=== PATIENT | male | born 1980 ===

== ENCOUNTER 2017-01-13 01:07 | Emergency (ER) | payer MEDICAID ==
[2017-01-13 01:16] VITALS: BP 147/89; PULSE 90; RESP 18; TEMP 98.3; O2SAT 98
--- NOTE | 2017-01-13 02:08 | ED PDOC ---
HPI: Trauma/Fall - HPI Time Seen by Provider: 01/13/17 01:11 Chief Complaint (Nursing): Medical Clearance Chief Complaint (Provider): body pain History Per: Patient History/Exam Limitations: no limitations Injury Occurred (Timing): Just Before Arrival Additional History Per: Patient Additional Complaint(s): 36 y/o male brought in by EMS, in police custody for eval of body pain and possible substance abuse. Patient states he was "jumped by the police". He is complaining of pain to head, face, chest/ribs, and left upper leg. Patient does not know if he lost consciousness. Denies headache, dizziness, nausea/ vomiting, vision changes, shortness of breath, palpitations, abdominal pain, back pain, numbness/weakness upper or lower extremities, bowel/bladder incontinence. He denies suicidal/homicidal ideations, drug or alcohol use. Past Medical History Reviewed: Historical Data, Nursing Documentation, Vital Signs Vital Signs: Last Vital Signs Temp 98.3 F 01/13/17 01:13 Pulse 90 01/13/17 01:13 Resp 18 01/13/17 01:13 BP 147/89 01/13/17 01:13 Pulse Ox 98 01/13/17 01:13 - Medical History PMH: Anxiety, Bipolar Disorder, Depression, Post Traumatic Stress Disorder - Family History Family History: States: Unknown Family Hx - Immunization History Hx Tetanus Toxoid Vaccination: No Hx Influenza Vaccination: No Hx Pneumococcal Vaccination: No - Home Medications Home Medications: Ambulatory Orders Medication Instructions Recorded Naproxen [Naprosyn] 1 tab PO BID PRN #25 tab 06/25/14 oxyCODONE/Acetaminophen [Percocet 1 tab PO QID PRN #20 tab 06/25/14 5/325 mg Tab] Mirtazapine [Remeron] 1 tab PO DAILY 07/28/16 Prednisone [Deltasone] 60 mg PO DAILY #15 tablet 07/28/16 traMADol [Ultram] 50 mg PO Q6H PRN #15 tab 07/28/16 Naproxen [Naprosyn] 500 mg PO Q12 PRN #20 tablet 01/13/17 - Allergies Allergies/Adverse Reactions: Allergies Allergy/AdvReac Type Severity Reaction Status Date / Time No Known Allergies Allergy Verified 06/25/14 12:15 Review of Systems ROS Statement: Except As Marked, All Systems Reviewed And Found Negative Musculoskeletal: Positive for: Leg Pain (left), Other (chest/rib pain) Neurological: Positive for: Headache Physical Exam - Reviewed Nursing Documentation Reviewed: Yes Vital Signs Reviewed: Yes - Physical Exam Appears: Positive for: Well, Non-toxic, No Acute Distress Head Exam: Negative for: ATRAUMATIC (multiple frontal contusions) Skin: Positive for: Normal Color Eye Exam: Positive for: EOMI, PERRL, Periorbital tenderness (right infraorbital ; no crepitus, bony deformity noted) ENT: Positive for: Normal ENT Inspection, Other (no septal hematoma b/l) Cardiovascular/Chest: Positive for: Regular Rate, Rhythm. Negative for: Chest Non Tender (tender to palpation left anterior chest wall, b/l lateral ribs. No crepitus, ecchymosis, swelling or flail chest noted) Respiratory: Positive for: Normal Breath Sounds Pulses-Dorsalis Pedis (L): 2+ Pulses-Dorsalis Pedis (R): 2+ Gastrointestinal/Abdominal: Positive for: Normal Exam Back: Positive for: Normal Inspection Extremity: Positive for: Tenderness (posterior left leg, left lateral leg; FROM but posterior pain with flexion at knee; no ecchymosis, swelling, deformity noted. Distal NV, motor intact), Other (abrasion left anterior lower cespedes) Neurologic/Psych: Positive for: Alert, Oriented. Negative for: Motor/Sensory Deficits - ECG O2 Sat by Pulse Oximetry: 98 - Progress ED Course And Treament: Ct head, CT facial, ribs/chest xray, left femur xray, tylenol PO Left lower leg abrasion cleaned with NS, steristrips applied Patient evaluated by acid conditioning worker and cleared for d/c as per Dr. Guerra. Patient educated on findings, discharged with rx Naproxen. Advised follow up PMD/ENT Return to ED for worsening/concerning symptoms. Disposition - Clinical Impression Clinical Impression: Nasal bone fracture, Forehead contusion, Leg pain, left, Leg abrasion, Chest wall pain, Polysubstance abuse - Patient ED Disposition Is Patient to be Admitted: No Counseled Patient/Family Regarding: Studies Performed, Diagnosis, Need For Followup, Rx Given - Disposition Referrals: [facility] [Outside] Merrill Duvall MD [Staff Provider] - Disposition: Discharged/Transfer to Law Enforcement Disposition Time: 04:33 Condition: STABLE Additional Instructions: Patient medically and psychiatrically cleared for incarceration Ice affected areas. Take medication as directed, as needed for pain. Follow up with primary doctor/ENT Return to ED for worsening/concerning symptoms. Prescriptions: Naproxen [Naprosyn] 500 mg PO Q12 PRN #20 tablet PRN Reason: Pain, Moderate (4-7) Instructions: Nasal Fracture (ED), Abrasion (ED), Polysubstance Abuse (ED), Leg Pain (ED), Facial Contusion (ED), Chest Wall Pain (ED)
--- NOTE | 2017-01-13 03:39 | CT ---
EXAM: CT Head Without Intravenous Contrast. CLINICAL HISTORY: 36 years old, male; Injury or trauma; Injury Under police custody; Initial encounter; Blunt trauma (contusions or hematomas); Additional info: Head trauma TECHNIQUE: Axial computed tomography images of the head/brain without intravenous contrast. This CT exam was performed using one or more of the following dose reduction techniques: automated exposure control, adjustment of the mA and/or kV according to patient size, and/or use of iterative reconstruction technique. Coronal and sagittal reformatted images were created and reviewed. EXAM DATE/TIME: 01/13/2017 1:54 AM COMPARISON: No relevant prior studies available. FINDINGS: No intracranial hemorrhage. No extra axial collections. No intracranial edema. No fluid in the sinuses or mastoid air cells. No depressed fractures. IMPRESSION: No acute intracranial injury.
--- NOTE | 2017-01-13 03:53 | CT ---
EXAM: CT Maxillofacial Without Intravenous Contrast. CLINICAL HISTORY: 36 years old, male; Injury or trauma; Injury Under police custody; Initial encounter; Blunt trauma (contusions or hematomas); Forehead TECHNIQUE: Axial computed tomography images of the face without intravenous contrast. This CT exam was performed using one or more of the following dose reduction techniques: automated exposure control, adjustment of the mA and/or kV according to patient size, and/or use of iterative reconstruction technique. Coronal and sagittal reformatted images were created and reviewed. EXAM DATE/TIME: 01/13/2017 1:54 AM COMPARISON: No relevant prior studies available. FINDINGS: Trace mucosal thickening in the ethmoid and maxillary sinuses. There is slight angulation of the nasal bones to be on an acute or chronic finding. There is a small lucency through the tip of the right nasal bone that appears somewhat sharp suggesting it is acute. Subcutaneous soft tissue swelling in maxillary and mandibular regions. The orbital globes are normal. No orbital fractures identified. IMPRESSION: Probable tiny nondisplaced fracture tip of the right nasal bone.
--- NOTE | 2017-01-13 13:30 | RAD ---
PROCEDURE: Left Femur Radiographs. HISTORY: leg pain COMPARISON: None. TECHNIQUE: AP and Lateral Radiographs of the left femur. FINDINGS: FEMUR: Bone alignment and mineralization is normal. There is no acute fracture or bone destruction. SOFT TISSUES: Normal. OTHER FINDINGS: None. IMPRESSION: No acute fracture or bone destruction.
--- NOTE | 2017-01-13 13:31 | RAD ---
PROCEDURE: Radiographs of the chest and bilateral ribs HISTORY: Bilateral anterior rib/chest pain COMPARISON: None TECHNIQUE: Frontal radiograph of the chest and multiple oblique radiographs of the bilateral ribs were obtained. FINDINGS: RIGHT RIBS: No fracture or focal lesion visualized. Bone alignment and mineralization are normal. LEFT RIBS: No fracture or focal lesion visualized. Bone alignment and mineralization are normal. LUNGS: The lungs are clear without consolidation. PLEURA: No pneumothorax or pleural fluid. CARDIOVASCULAR: Normal sized heart. No pulmonary vascular congestion. OTHER FINDINGS: None. IMPRESSION: No acute rib fracture or bone destruction. Clear lungs. No pneumothorax or pleural effusion
== END 2017-01-13 05:03 ==
LOC: H.ER 01:07
DX: R07.89 Other chest pain (principal); S02.2XXA Fracture of nasal bones, initial encounter for closed fracture; S00.83XA Contusion of other part of head, initial encounter; S80.819A Abrasion, unspecified lower leg, initial encounter; S09.90XA Unspecified injury of head, initial encounter; M79.605 Pain in left leg; Y35.813A Legal intervention involving manhandling, suspect injured, initial encounter; Y92.89 Other specified places as the place of occurrence of the external cause; F31.9 Bipolar disorder, unspecified; F19.10 Other psychoactive substance abuse, uncomplicated